=== PATIENT | female | born 1995 | race Caucasian/White ===

== ENCOUNTER 2016-11-11 22:06 | Emergency (ER) | payer BC, MEDICAID ==
[~2016-11-11] VITALS: Ht 175.3 cm; Wt 68.0 kg
[~2016-11-11 22:06] MED LIST: CYCLOBENZAPRINE10 MG ORAL; IBUPROFEN600 MG ORAL
[2016-11-11] MEDS ORDERED: LAMICTAL100 MG ORAL (22:24)
[2016-11-11] MEDS ORDERED: GENTAMICIN SUL3.5 GM OP (22:47)
[2016-11-11] MEDS ORDERED: ZYRTEC-D TABLE1 EACH ORAL (22:47)
[2016-11-11 22:59] VITALS: BP 98/63
--- NOTE | 2016-11-12 00:24 | Emergency Room Report ---
History of Present Illness General Chief Complaint: Eye Problems Source: Patient Present Illness HPI Patient has with complaints of bilateral eye irritation Patient reports that earlier in the week Patient was seen at urgent care prescribed drops for her eyes Also antibiotics for her throat She felt that her eye redness continued She was concerning came to the ER Denies any fevers or chills Denies any change in her vision Denies any change in medications Denies any contact with any foreign chemical Allergies: Coded Allergies: No Known Allergies (Unverified , 08/09/16) Patient History Past Medical History: see triage record Pertinent Family History: none Last Menstrual Period: LAST MONTH Reviewed Nursing Documentation: PMH: Agreed, PSxH: Agreed Nursing Documentation-PMH Past Medical History: No Stated History Review of Systems All Other Systems: negative except mentioned in HPI Physical Exam Vital Signs Date Time Temp Pulse Resp B/P Pulse Ox O2 Delivery O2 Flow Rate FiO2 11/11/16 22:18 98.2 84 16 103/58 99 Room Air Sp02 EP Interpretation: reviewed, normal General Appearance: well appearing, no apparent distress Head: normocephalic, atraumatic Eyes: bilateral eye EOMI, bilateral eye PERRL, bilateral eye other - Bilateral conjunctivitis ENT: hearing grossly normal, normal pharynx Neck: full range of motion, supple, thyroid normal Respiratory: chest non-tender, lungs clear Cardiovascular #1: normal peripheral pulses, regular rate, rhythm Musculoskeletal: normal inspection Neurologic: alert, oriented x3 Skin: normal color, no rash Lymphatic: no adenopathy Medical Decision Making Diagnostic Impression: Primary Impression: uri Additional Impression: conjunctivitis ER Course Patient present findings in line with likely conjunctivitis Patient's eye exam is otherwise appropriate does not show any danger to lesions And the eyelids do not appear to be affected and the patient has been treated conservatively For outpatient care Last Vital Signs Date Time Temp Pulse Resp B/P Pulse Ox O2 Delivery O2 Flow Rate FiO2 11/11/16 22:59 98.2 80 14 98/63 99 Room Air Status: unchanged Disposition: HOME, SELF-CARE Condition: Stable Scripts Gentamicin Sulfate* (GENTAMICIN SULFATE*) 3.5 Gm Oint...g. 3.5 GM OP BID for 5 Days, GM Prov: ANNIE STREET D.O. 11/11/16 Cetirizine Hcl/Pseudoephedrine (ZYRTEC-D TABLET) 1 Each Tab.er.12h 1 EACH ORAL DAILY for 7 Days, TAB Prov: ANNIE STREET D.O. 11/11/16 Referrals: NOT CHOSEN IPA/MD,REFERRING (PCP) Patient Instructions: Bacterial Conjunctivitis, Upper Respiratory Infection, Adult Additional Instructions: Patient is provided with the discharge instructions notified to follow up with primary doctor in the next 2-3 days otherwise return to the er with any worsening symptoms. Please note that this report is being documented using [employer] technology. This can lead to erroneous entry secondary to incorrect interpretation by the dictating instrument. ANNIE STREET D.O. Nov 12, 2016 00:24
== END 2016-11-11 22:59 | disposition home or self-care (01) ==
LOC: EMR 22:35
DX: Z43.1 Encounter for attention to gastrostomy (principal); Z88.0 Allergy status to penicillin; Z88.2 Allergy status to sulfonamides; I10 Essential (primary) hypertension; E11.9 Type 2 diabetes mellitus without complications; J44.9 Chronic obstructive pulmonary disease, unspecified; G30.9 Alzheimer's disease, unspecified; F02.80 Dementia in other diseases classified elsewhere, unspecified severity, without behavioral disturbance, psychotic disturbance, mood disturbance, and anxiety; F41.9 Anxiety disorder, unspecified
CPT/HCPCS: 99284

== ENCOUNTER 2017-05-31 15:33 | Emergency (ER) | payer BC, MEDICAID ==
[~2017-05-31] VITALS: Ht 175.3 cm; Wt 65.3 kg
[~2017-05-31 15:33] MED LIST changes: +GENTAMICIN SUL3.5 GM OP; +LAMICTAL100 MG ORAL; +ZYRTEC-D TABLE1 EACH ORAL
[2017-05-31] MEDS ORDERED: NKM (16:06)
[2017-05-31 16:10] VITALS: BP 116/83
[2017-05-31 17:45] VITALS: BP 116/75
--- NOTE | 2017-05-31 19:31 | Emergency Room Report ---
History of Present Illness General Chief Complaint: General Complaint Source: Patient Present Illness HPI The patient is a 21-year-old female presenting for upper lip pain. She states that she had a lip piercing 2 months prior without any complications. She states that she then noticed that the internal region had overgrown the piercing. She went to the person who performed the piercing who told her to go to the emergency department. She states pain is an 8/10 dull ache, worse with touch. She denies radiating pain. She denies any other symptoms including N, V, F, chills, cough Allergies: Coded Allergies: No Known Allergies (Unverified , 08/09/16) Patient History Past Medical History: see triage record Pertinent Family History: none Last Menstrual Period: One week ago Now: No Reviewed Nursing Documentation: PMH: Agreed, PSxH: Agreed Nursing Documentation-PMH Past Medical History: No Stated History Review of Systems All Other Systems: negative except mentioned in HPI Physical Exam Vital Signs Date Time Temp Pulse Resp B/P (MAP) Pulse Ox O2 Delivery O2 Flow Rate FiO2 05/31/17 16:00 98.6 89 16 116/75 100 Room Air Sp02 EP Interpretation: reviewed, normal General Appearance: no apparent distress, alert, GCS 15, non-toxic Head: normocephalic, atraumatic Eyes: bilateral eye normal inspection, bilateral eye PERRL ENT: hearing grossly normal, normal pharynx, no angioedema, normal voice, uvula midline, other - Upper lip: internal end of piercing not visible. Neck: full range of motion, no bony tend, supple/symm/no masses Respiratory: chest non-tender, lungs clear, normal breath sounds, speaking full sentences Musculoskeletal: back normal, gait/station normal, normal range of motion, non- tender Neurologic: alert, oriented x3, responsive, motor strength/tone normal, sensory intact, speech normal Psychiatric: judgement/insight normal, memory normal, mood/affect normal, no suicidal/homicidal ideation Skin: normal color, no rash Lymphatic: no adenopathy Medical Decision Making PA Attestation Dr. Vasquez is my supervising physician. Patient management was discussed with my supervising physician Diagnostic Impression: Primary Impression: Foreign body in lip Qualified Codes: S00.551A - Superficial foreign body of lip, initial encounter ER Course The patient is a 21-year-old female presenting for upper lip pain DDx considered but not limited to: FB, cellulitis, abscess PE: Afebrile. NAD HEENT: Mid upper lip piercing in place. No signs of infection. Interior end of piercing of the mucosa not visible. The area is cleaned with Betadine. The piercing was pushed through the mucosal layer. I was then able to clamp one end and unscrew the head of the piercing. Removed without difficulty. No bleeding. Pt tolerated well. The patient discharged home. She is given return precautions including fever, swelling, or rash. Last Vital Signs Date Time Temp Pulse Resp B/P (MAP) Pulse Ox O2 Delivery O2 Flow Rate FiO2 05/31/17 17:45 98.6 91 16 116/75 100 Room Air Status: improved Disposition: HOME, SELF-CARE Condition: Improved Referrals: NOT CHOSEN IPA/MD,REFERRING (PCP) Patient Instructions: Cellulitis Additional Instructions: I discussed my findings with the patient. All questions and concerns have been answered. Treatment and medication compliance have been addressed. I advised the patient that they need to follow up with PMD in 3-5 days. Return to ED if symptoms worsen, new symptoms arise such as red skin, increased pain, bleeding, or if needed for any reason. Patient verbalized understanding of discharge instructions. RONALD GIL May 31, 2017 19:31
== END 2017-05-31 18:22 | disposition home or self-care (01) ==
LOC: EMR 17:56
DX: S00.551A Superficial foreign body of lip, initial encounter (principal); X58.XXXA Exposure to other specified factors, initial encounter; Y93.9 Activity, unspecified; Y92.9 Unspecified place or not applicable
CPT/HCPCS: 99283

== ENCOUNTER 2017-07-08 22:36 | Emergency (ER) | payer BC, MEDICAID ==
[~2017-07-08] VITALS: Ht 175.3 cm; Wt 63.5 kg
[~2017-07-08 22:36] MED LIST changes: +NKM
[2017-07-08] MEDS ORDERED: NKM (22:48)
[2017-07-08] MEDS ORDERED: AMOXICILLIN500 MG ORAL (23:10)
[2017-07-08] MEDS ORDERED: IBUPROFEN600 MG ORAL (23:10)
--- NOTE | 2017-07-08 23:10 | Emergency Room Report ---
History of Present Illness General Chief Complaint: Sore Throat Source: Patient Present Illness [facility] This is a 21-year-old female with no past medical history. She presents with chief complaint of sore throat and enlarged tonsil. Onset for the last 2 days. Increasing pain today. Worse with swallowing. No drooling. No fever. No cough or congestion. Pain is 10 out of 10. Worse with swallowing. Her mom gave her one Adams. Allergies: Coded Allergies: No Known Allergies (Unverified , 08/09/16) Patient History Past Medical History: none, see triage record, old chart reviewed Past Surgical History: none Pertinent Family History: none Social History: Denies: smoking Last Menstrual Period: 06/24/17 Now: No : 0 Para: 0 Immunizations: other Reviewed Nursing Documentation: PMH: Agreed, PSxH: Agreed Nursing Documentation-PMH History Of Psychiatric Problem: Yes - Bipolar Review of Systems Eye: Denies: eye pain, blurred vision ENT: Reports: throat pain, Denies: ear pain, nose congestion, throat swelling Respiratory: Denies: cough, shortness of breath Cardiovascular: Denies: chest pain, palpitations Gastrointestinal: Denies: abdominal pain, diarrhea, nausea, vomiting Musculoskeletal: Denies: back pain, joint pain Skin: Denies: rash Neurological: Denies: headache, numbness Endocrine: Denies: increased thirst, increased urine Hematologic/Lymphatic: Denies: easy bruising All Other Systems: negative except mentioned in HPI Physical Exam Vital Signs Date Time Temp Pulse Resp B/P (MAP) Pulse Ox O2 Delivery O2 Flow Rate FiO2 07/08/17 22:45 98.2 77 14 112/75 100 Room Air vitals normal Sp02 EP Interpretation: reviewed, normal General Appearance: well appearing, no apparent distress, alert Head: normocephalic, atraumatic Eyes: bilateral eye PERRL, bilateral eye EOMI ENT: hearing grossly normal, tonsillar swelling, pharyngeal erythema, tonsillar exudate Neck: full range of motion, supple, no meningismus, other - Enlarged, tender cervical nodes Respiratory: chest non-tender, lungs clear, normal breath sounds Cardiovascular #1: regular rate, rhythm, no murmur Gastrointestinal: normal bowel sounds, non tender, no mass, no organomegaly, no bruit, non-distended Musculoskeletal: back normal, gait/station normal, normal range of motion Psychiatric: mood/affect normal Skin: warm/dry Medical Decision Making Diagnostic Impression: Primary Impression: Acute tonsillitis Qualified Codes: J03.90 - Acute tonsillitis, unspecified ER Course Patient with tonsillitis, most likely strep. No evidence of peritonsillar abscess, retropharyngeal abscess or Jose Eduardo angina. We'll discharge home. Last Vital Signs Date Time Temp Pulse Resp B/P (MAP) Pulse Ox O2 Delivery O2 Flow Rate FiO2 07/08/17 22:45 98.2 77 14 112/75 100 Room Air Status: improved Disposition: HOME, SELF-CARE Condition: Stable Scripts Ibuprofen* (MOTRIN*) 600 Mg Tablet 600 MG ORAL Q8H Y for For Pain, #30 TAB 0 Refills Prov: ROBERT MALIK M.D. 07/08/17 Amoxicillin* (AMOXIL*) 500 Mg Capsule 500 MG ORAL THREE TIMES A DAY, #21 CAP Prov: ROBERT MALIK M.D. 07/08/17 Patient Instructions: Strep Throat Additional Instructions: Followup with your DrHedy in 2-3 days if not better. Return if symptom worsen. ROBERT MALIK M.D. Jul 08, 2017 23:10
[2017-07-08 23:25] VITALS: BP 112/75
== END 2017-07-08 23:20 | disposition home or self-care (01) ==
LOC: EMR 22:58
DX: J03.90 Acute tonsillitis, unspecified (principal)
CPT/HCPCS: 99284